=== PATIENT | female | born 1990 | race Caucasian/White ===

== ENCOUNTER 2024-10-20 10:54 | Emergency (ER) | payer OTHER ==
[2024-10-20 11:07] VITALS: BP 129/85; PULSE 104; RESP 20; TEMP 97.6; BMI 27.4
[2024-10-20] MEDS ORDERED: predniSONE 20 MG TABLET (UD) ONE (11:37)
[2024-10-20] MEDS ORDERED: COLCHICINE 0.6 MG TAB ONE (11:38)
[2024-10-20] MEDS: predniSONE 20 MG TABLET (UD) PO ONE (11:41)
[2024-10-20] MEDS: COLCHICINE 0.6 MG TAB PO ONE (11:41)
== END 2024-10-20 12:28 | disposition home or self-care (01) ==
LOC: JER 10:54
DX: M10.9 Gout, unspecified (principal); M25.561 Pain in right knee; R60.0 Localized edema
CPT/HCPCS: 99283-25